=== PATIENT | female | born 1990 | race Caucasian/White ===

== ENCOUNTER 2020-05-05 08:00 | Outpatient (CLI) | payer OTHER | END 2020-05-05 23:59 | disposition home or self-care (01) | LOC: LAB.S 08:00 | PROVIDERS: ATTEND Physician Assistant Medical | DX: R30.0 Dysuria (principal) | CPT/HCPCS: 87077; 87086; 87181 ==

== ENCOUNTER 2020-06-26 19:06 | Emergency (ER) | payer OTHER ==
--- OUTSIDE RECORDS SUMMARY | 2020-06-26 19:09 | EXTERNAL MEDICAL SUMMARY RPT | Continuity of Care Document ---
:1990 Demographics Phone Unavailable Preferred Language Unknown Marital Status Unknown Scientologist Affiliation Unknown Race Unknown Ethnic Group Unknown Author Organization [facility] Address [address] [id number] Phone Care Team Providers Name Role Phone PA-C Unavailable Unavailable Valerie Unavailable Unavailable Medications date description facility [id number] LEVOTHYROXINE SODIUM [facility] [id number] TRAZODONE HCL [facility] [id number] LEVONORGESTREL [facility] [facility] [id number] AMPHETAMINE-DEXTROAMPHETAMINE [facility] [id number] NITROFURANTOIN MONOHYD MACRO [facility] [id number] GABAPENTIN [facility] [place] [facility] [id number] LURASIDONE HCL [facility] [place] [facility] [id number] LURASIDONE HCL [facility] [place] [facility] [id number] AMPHETAMINE-DEXTROAMPHETAMINE [facility] [id number] NITROFURANTOIN MONOHYD MACRO [facility] [id number] LEVONORGESTREL [facility] [place] [facility] [id number] GABAPENTIN [facility] [place] [facility] [id number] TRAZODONE HCL [facility] [place] [facility] [id number] LEVOTHYROXINE SODIUM [facility] [id number] LEVOTHYROXINE SODIUM All [id number] TRAZODONE HCL All [id number] LEVONORGESTREL All [id number] AMPHETAMINE-DEXTROAMPHETAMINE All [id number] NITROFURANTOIN MONOHYD MACRO All [id number] GABAPENTIN All [id number] LURASIDONE HCL All [id number] LURASIDONE HCL All [id number] AMPHETAMINE-DEXTROAMPHETAMINE All [id number] NITROFURANTOIN MONOHYD MACRO All [id number] LEVONORGESTREL All [id number] GABAPENTIN All [id number] TRAZODONE HCL All [id number] LEVOTHYROXINE SODIUM All Problems date description facility 20200505 Urine C&S Walk[facility]In [facility] 20200505 Tobacco use and exposure Walk-In [facility] 20200505 Recurrent cystitis Walk[facility] 20200505 Details of drug misuse behavior Walk-I n [facility] 20200505 Bipolar II disorder Walk[facility]In [facility] 20200505 Alcohol intake Walk[facility] 20200505 Tobacco smoking status NHIS All 20200505 Other bipolar disorders All [id number] Never smoker All [id number] Dysuria All 20200505 Cystitis, unspecified All 20200505 Cystitis, unspecified without All hematuria 20200505 Alcohol use All Procedures date description facility 20200505 POC HCG Walk-In [facility] 20200505 POC URINALYSIS DIP Walk[facility]In [facility] 20200505 POC HCG All 20200505 POC URINALYSIS DIP All Results test status date ordered by attending specimen sue e Urobilinogen_Presence_ unknown [id number] unknown unknown unknown in_Urine_by_Test_strip Specific_gravity_of_Ur unknown 53959105 unknown unknown unknown ine_by_Test_strip pH_of_Urine_by_Test_st unknown 45453878 unknown unknown unknown rip Nitrite_Presence_in_Ur unknown 39419163 unknown unknown unknown ine_by_Test_strip Leukocyte_esterase_Pre unknown 53636634 unknown unknown unknown sence_in_Urine_by_Test_ strip Ketones_Mass_volume_in unknown 80691793 unknown unknown unknown _Urine_by_Test_strip Glucose_Mass_volume_in unknown 72088746 unknown unknown unknown _Urine_by_Test_strip Color_of_Urine unknown 46302676 unknown unknown unknown Bilirubin.total_Presen unknown 20200505 unknown unknown unknown ce_in_Urine_by_Test_str ip Appearance_of_Urine unknown 79091082 unknown unknown unk nown urinalysis_routine unknown 76090398 unknown unknown unkn own appearance_urine unknown 73135571 unknown unknown unknow n leukocyte_esterase_uri unknown 75356415 unknown unknown unknown ne_by_dipstick urobilinogen_urine_sem unknown 63305769 unknown unknown unknown iquantitative_dipstick_ specific_gravity_urine unknown 97913128 unknown unknown unknown pH_urine_semiquantitat unknown 44640357 unknown unknown unknown susan nitrite_urine_semiquan unknown 78741804 unknown unknown unknown titative ketones_urine_by_test_ unknown 56064917 unknown unknown unknown strip bilirubin_urine unknown 98377892 unknown unknown unknown urine_color unknown 15324057 unknown unknown unknown human_chorionic_gonado unknown 44378121 unknown unknown unknown tropin_urine_qualitativ e_urine_pregnancy_test_ Choriogonadotropin_pre unknown 84621882 unknown unknown unknown gnancy_test_Presence_in _Urine Albumin_Presence_in_Ur unknown 86422482 unknown unknown unknown ine RBC_urine_dipstick unknown 20779973 unknown unknown unkn own Erythrocytes_area_in_U unknown 11550586 unknown unknown unknown rine_sediment_by_Micros copy_high_power_field glucose_urine_semiquan unknown 83342322 unknown unknown unknown titative protein_urine_semiquan unknown 32213472 unknown unknown unknown titative_dipstick_ Urine_HCG_QC_Result_CL unknown 24499195 unknown unknown unknown IA_Waived_ Urine_HCG_Exp_Date_CLI unknown 04724351 unknown unknown unknown A_Waived_ Urine_HCG_Lot_Number_C unknown 77124656 unknown unknown unknown LIA_Waived_ DIPSTICK_URINE_STRIP_L unknown 62239528 unknown unknown unknown OT_NUMBER Urobilinogen_Presence_ unknown 79476182 unknown unknown unknown in_Urine_by_Test_strip Specific_gravity_of_Ur unknown 85870501 unknown unknown unknown ine_by_Test_strip pH_of_Urine_by_Test_st unknown 68337235 unknown unknown unknown rip Nitrite_Presence_in_Ur unknown 63431750 unknown unknown unknown ine_by_Test_strip Leukocyte_esterase_Pre unknown 63580503 unknown unknown unknown sence_in_Urine_by_Test_ strip Ketones_Mass_volume_in unknown 47118255 unknown unknown unknown _Urine_by_Test_strip Glucose_Mass_volume_in unknown 49802601 unknown unknown unknown _Urine_by_Test_strip Color_of_Urine unknown 35612048 unknown unknown unknown Bilirubin.total_Presen unknown 46716741 unknown unknown unknown ce_in_Urine_by_Test_str ip Appearance_of_Urine unknown 02599223 unknown unknown unk nown urinalysis_routine unknown 91548983 unknown unknown unkn own appearance_urine unknown 71744523 unknown unknown unknow n leukocyte_esterase_uri unknown 48618404 unknown unknown unknown ne_by_dipstick urobilinogen_urine_sem unknown 61889455 unknown unknown unknown iquantitative_dipstick_ specific_gravity_urine unknown 21527043 unknown unknown unknown pH_urine_semiquantitat unknown 71302328 unknown unknown unknown susan nitrite_urine_semiquan unknown 37810519 unknown unknown unknown titative ketones_urine_by_test_ unknown 69990685 unknown unknown unknown strip bilirubin_urine unknown 35829111 unknown unknown unknown urine_color unknown 91679498 unknown unknown unknown human_chorionic_gonado unknown 51986515 unknown unknown unknown tropin_urine_qualitativ e_urine_pregnancy_test_ Choriogonadotropin_pre unknown 58124216 unknown unknown unknown gnancy_test_Presence_in _Urine Albumin_Presence_in_Ur unknown 04766932 unknown unknown unknown ine RBC_urine_dipstick unknown 01193113 unknown unknown unkn own Erythrocytes_area_in_U unknown 64467001 unknown unknown unknown rine_sediment_by_Micros copy_high_power_field glucose_urine_semiquan unknown 62978911 unknown unknown unknown titative protein_urine_semiquan unknown 62553401 unknown unknown unknown titative_dipstick_ Urine_HCG_QC_Result_CL unknown 84097229 unknown unknown unknown IA_Waived_ Urine_HCG_Exp_Date_CLI unknown 98602579 unknown unknown unknown A_Waived_ Urine_HCG_Lot_Number_C unknown 06101653 unknown unknown unknown LIA_Waived_ DIPSTICK_URINE_STRIP_L unknown 54989917 unknown unknown unknown OT_NUMBER facility observation status value reference units lab abnor mal line range code notes Walk-In Urobilinogen unknown negative unknown _5818 unkn own unknown Clinic _Presence_in_ -0 Primary Urine_by_Test Care & _strip [facility] Specific_gra unknown 1.010 unknown _5811 unknow n unknown Clinic vity_of_Urine -5 Primary _by_Test_stri Care & p [facility] pH_of_Urine_ unknown 5.5 unknown _5803 unknow n unknown Clinic by_Test_strip -2 Primary [facility] Nitrite_Pres unknown negative unknown _5802 unkn own unknown Clinic ence_in_Urine -4 Primary _by_Test_stri Care & p [facility] Leukocyte_es unknown 2+ unknown _5799 unknow n unknown Clinic terase_Presen -2 Primary ce_in_Urine_b Care & y_Test_strip [facility] Ketones_Mass unknown negative unknown _5797 unkn own unknown Clinic _volume_in_Ur -6 Primary ine_by_Test_s Care & trip [facility] Glucose_Mass unknown negative unknown _5792 unkn own unknown Clinic _volume_in_Ur -7 Primary ine_by_Test_s Care & trip [facility] Color_of_Uri unknown yellow unknown _5778 unknow n unknown Clinic ne -6 [facility] Bilirubin.to unknown negative unknown _5770 unkn own unknown Clinic tal_Presence_ -3 Primary in_Urine_by_T Care & est_strip [facility] Appearance_o unknown clear unknown _5767 unknow n unknown Clinic f_Urine -9 [facility] urinalysis_r unknown Clean unknown _47 unknow n unknown Clinic outine Catch [facility] appearance_u unknown clear unknown _328 unknow n unknown Clinic rine [facility] leukocyte_es unknown 2+ unknown _327 unknow n unknown Clinic terase_urine_ Primary by_dipstick [facility] urobilinogen unknown negative unknown _326 unkn own unknown Clinic _urine_semiqu Primary antitative_di Care & pstick_ [facility] specific_gra unknown 1.010 unknown _325 unknow n unknown Clinic vity_urine [facility] pH_urine_sem unknown 5.5 unknown _324 unknow n unknown Clinic iquantitative [facility] nitrite_urin unknown negative unknown _323 unkn own unknown Clinic e_semiquantit Primary ative [facility] ketones_urin unknown negative unknown _322 unkn own unknown Clinic e_by_test_str Primary ip [facility] bilirubin_ur unknown negative unknown _319 unkn own unknown Clinic ine [facility] urine_color unknown yellow unknown _2751 unknown unknown Clinic [facility] human_chorio unknown Negative unknown _2578 unkn own unknown Clinic nic_gonadotro Primary pin_urine_qua Care & litative_urin Ancillary e_pregnancy_t Services est_ [facility] Choriogonado unknown Negative unknown _2106 unkn own unknown Clinic tropin_pregna -3 Primary ncy_test_Pres Care & ence_in_Urine [facility] Albumin_Pres unknown negative unknown _1753 unkn own unknown Clinic ence_in_Urine -3 [facility] RBC_urine_di unknown 1+ unknown _1700 unknow n unknown Clinic pstick 005 [facility] Erythrocytes unknown 1+ unknown _1394 unknow n unknown Clinic _area_in_Urin 5-1 Primary e_sediment_by Care & _Microscopy_h Ancillary igh_power_fie Services ld [facility] glucose_urin unknown negative unknown _123 unkn own unknown Clinic e_semiquantit Primary ative Care & [facility] protein_urin unknown negative unknown _118 unkn own unknown Clinic e_semiquantit Primary ative_dipstic Care & k_ [facility] Urine_HCG_QC unknown Yes unknown _1149 unknow n unknown Clinic _Result_CLIA_ 42 Primary Waived_ Care & [facility] Urine_HCG_Ex unknown unknown _1149 unk nown unknown Clinic p_Date_CLIA_W 2 41 Primary aived_ [facility] Urine_HCG_Lo unknown [id number] unknown _1149 unk nown unknown Clinic t_Number_CLIA 9 40 Primary _Waived_ Care [facility] DIPSTICK_URI unknown 5067 unknown _1014 unknow n unknown Clinic NE_STRIP_LOT_ 00 Primary NUMBER [facility] All Urobilinogen unknown negative unknown _5818 unkno wn unknown _Presence_in_ -0 Urine_by_Test _strip All Specific_gra unknown 1.010 unknown _5811 unknown unknown vity_of_Urine -5 _by_Test_stri p All pH_of_Urine_ unknown 5.5 unknown _5803 unknown unknown by_Test_strip -2 All Nitrite_Pres unknown negative unknown _5802 unkno wn unknown ence_in_Urine -4 _by_Test_stri p All Leukocyte_es unknown 2+ unknown _5799 unknown unknown terase_Presen -2 ce_in_Urine_b y_Test_strip All Ketones_Mass unknown negative unknown _5797 unkno wn unknown _volume_in_Ur -6 ine_by_Test_s trip All Glucose_Mass unknown negative unknown _5792 unkno wn unknown _volume_in_Ur -7 ine_by_Test_s trip All Color_of_Uri unknown yellow unknown _5778 unknown unknown ne -6 All Bilirubin.to unknown negative unknown _5770 unkno wn unknown tal_Presence_ -3 in_Urine_by_T est_strip All Appearance_o unknown clear unknown _5767 unknown unknown f_Urine -9 All urinalysis_r unknown Clean unknown _47 unknown unknown outine Catch All appearance_u unknown clear unknown _328 unknown unknown rine All leukocyte_es unknown 2+ unknown _327 unknown unknown terase_urine_ by_dipstick All urobilinogen unknown negative unknown _326 unkno wn unknown _urine_semiqu antitative_di pstick_ All specific_gra unknown 1.010 unknown _325 unknown unknown vity_urine All pH_urine_sem unknown 5.5 unknown _324 unknown unknown iquantitative All nitrite_urin unknown negative unknown _323 unkno wn unknown e_semiquantit ative All ketones_urin unknown negative unknown _322 unkno wn unknown e_by_test_str ip All bilirubin_ur unknown negative unknown _319 unkno wn unknown ine All urine_color unknown yellow unknown _2751 unknown unknown All human_chorio unknown Negative unknown _2578 unkno wn unknown nic_gonadotro pin_urine_qua litative_urin e_pregnancy_t est_ All Choriogonado unknown Negative unknown _2106 unkno wn unknown tropin_pregna -3 ncy_test_Pres ence_in_Urine All Albumin_Pres unknown negative unknown _1753 unkno wn unknown ence_in_Urine -3 All RBC_urine_di unknown 1+ unknown _1700 unknown unknown pstick 005 All Erythrocytes unknown 1+ unknown _1394 unknown unknown _area_in_Urin 5-1 e_sediment_by _Microscopy_h igh_power_fie ld All glucose_urin unknown negative unknown _123 unkno wn unknown e_semiquantit ative All protein_urin unknown negative unknown _118 unkno wn unknown e_semiquantit ative_dipstic k_ All Urine_HCG_QC unknown Yes unknown _1149 unknown unknown _Result_CLIA_ 42 Waived_ All Urine_HCG_Ex unknown unknown _1149 unkn own unknown p_Date_CLIA_W 2 41 aived_ All Urine_HCG_Lo unknown [id number] unknown _1149 unkn own unknown t_Number_CLIA 9 40 _Waived_ All DIPSTICK_URI unknown 5067 unknown _1014 unknown unknown NE_STRIP_LOT_ 00 NUMBER Vital Signs date measurement value source 20200505 weight_standard 66 lb 20200505 weight_metric 29.94 kg 20200505 temperature_standard 98.3 F 20200505 temperature_metric 36.83 C 20200505 respiration_rate 15 /min 20200505 height_standard 206 in 20200505 height_metric 523.24 cm 20200505 heart_rate 71 /min 20200505 BP_systolic 118 mm[Hg] 20200505 BP_diastolic 78 mm[Hg] 20200505 BMI 1.10 kg/m2 20200505 weight_standard 66 lb 20200505 weight_metric 29.94 kg 20200505 temperature_standard 98.3 F 20200505 temperature_metric 36.83 C 20200505 respiration_rate 15 /min 20200505 height_standard 206 in 20200505 height_metric 523.24 cm 20200505 heart_rate 71 /min 20200505 BP_systolic 118 mm[Hg] 20200505 BP_diastolic 78 mm[Hg] 20200505 BMI 1.10 kg/m2
--- OUTSIDE RECORDS SUMMARY | 2020-06-26 19:13 | EXTERNAL MEDICAL SUMMARY RPT | Continuity of Care Document ---
:1990 Demographics Phone Unavailable Preferred Language Unknown Marital Status Unknown Uatsdin Affiliation Unknown Race Unknown Ethnic Group Unknown Author Organization [place] Address [address] [phone] Phone Care Team Providers Name Role Phone PA-C Unavailable Unavailable Valerie Unavailable Unavailable Medications date description facility [id number] LEVOTHYROXINE SODIUM [facility] [id number] TRAZODONE HCL [facility] [id number] LEVONORGESTREL [facility] [id number] AMPHETAMINE-DEXTROAMPHETAMINE [facility] [id number] NITROFURANTOIN MONOHYD MACRO Walk[facility] [place] [id number] GABAPENTIN [facility] [id number] LURASIDONE HCL [facility] [id number] LURASIDONE HCL [facility] [place] [facility] [id number] AMPHETAMINE-DEXTROAMPHETAMINE [facility] [id number] NITROFURANTOIN MONOHYD MACRO [facility] [place] [id number] LEVONORGESTREL [facility] [place] [facility] [id number] GABAPENTIN [facility] [place] [facility] [id number] TRAZODONE HCL [facility] [place] [facility] [id number] LEVOTHYROXINE SODIUM [facility] [id number] LEVOTHYROXINE SODIUM All [id number] TRAZODONE HCL All [id number] LEVONORGESTREL All [id number] AMPHETAMINE-DEXTROAMPHETAMINE All [id number] NITROFURANTOIN MONOHYD MACRO All [id number] GABAPENTIN All [id number] LURASIDONE HCL All [id number] LURASIDONE HCL All [id number] AMPHETAMINE-DEXTROAMPHETAMINE All [id number] NITROFURANTOIN MONOHYD MACRO All [id number] LEVONORGESTREL All [id number] GABAPENTIN All [id number] TRAZODONE HCL All [id number] LEVOTHYROXINE SODIUM All Problems date description facility [id number] Urine C&S [facility] 20200505 Tobacco use and exposure Walk[facility] [id number] Recurrent cystitis [facility] [id number] Details of drug misuse behavior Walk-[facility] Services [facility] [id number] Bipolar II disorder Walk[facility] Services [facility] 20200505 Alcohol intake [facility] 20200505 Tobacco smoking status NHIS All 20200505 Other bipolar disorders All [id number] Never smoker All [id number] Dysuria All 20200505 Cystitis, unspecified All 20200505 Cystitis, unspecified without All hematuria 20200505 Alcohol use All Procedures date description facility 20200505 POC HCG Walk-In [facility] 20200505 POC URINALYSIS DIP Walk[facility] 20200505 POC HCG All 20200505 POC URINALYSIS DIP All Results test status date ordered by attending specimen sue e Urobilinogen_Presence_ unknown [id number] unknown unknown unknown in_Urine_by_Test_strip Specific_gravity_of_Ur unknown [id number] unknown unknown unknown ine_by_Test_strip pH_of_Urine_by_Test_st unknown [id number] unknown unknown unknown rip Nitrite_Presence_in_Ur unknown [id number] unknown unknown unknown ine_by_Test_strip Leukocyte_esterase_Pre unknown [id number] unknown unknown unknown sence_in_Urine_by_Test_ strip Ketones_Mass_volume_in unknown 21876142 unknown unknown unknown _Urine_by_Test_strip Glucose_Mass_volume_in unknown 80860257 unknown unknown unknown _Urine_by_Test_strip Color_of_Urine unknown 19196514 unknown unknown unknown Bilirubin.total_Presen unknown 20200505 unknown unknown unknown ce_in_Urine_by_Test_str ip Appearance_of_Urine unknown [id number] unknown unknown unk nown urinalysis_routine unknown [id number] unknown unknown unkn own appearance_urine unknown 88363801 unknown unknown unknow n leukocyte_esterase_uri unknown [id number] unknown unknown unknown ne_by_dipstick urobilinogen_urine_sem unknown 25190591 unknown unknown unknown iquantitative_dipstick_ specific_gravity_urine unknown [id number] unknown unknown unknown pH_urine_semiquantitat unknown 30843953 unknown unknown unknown susan nitrite_urine_semiquan unknown [id number] unknown unknown unknown titative ketones_urine_by_test_ unknown [id number] unknown unknown unknown strip bilirubin_urine unknown 76224355 unknown unknown unknown urine_color unknown 38368896 unknown unknown unknown human_chorionic_gonado unknown [id number] unknown unknown unknown tropin_urine_qualitativ e_urine_pregnancy_test_ Choriogonadotropin_pre unknown 51995742 unknown unknown unknown gnancy_test_Presence_in _Urine Albumin_Presence_in_Ur unknown 27853260 unknown unknown unknown ine RBC_urine_dipstick unknown 10874423 unknown unknown unkn own Erythrocytes_area_in_U unknown 14208481 unknown unknown unknown rine_sediment_by_Micros copy_high_power_field glucose_urine_semiquan unknown 12535882 unknown unknown unknown titative protein_urine_semiquan unknown 37663283 unknown unknown unknown titative_dipstick_ Urine_HCG_QC_Result_CL unknown [id number] unknown unknown unknown IA_Waived_ Urine_HCG_Exp_Date_CLI unknown [id number] unknown unknown unknown A_Waived_ Urine_HCG_Lot_Number_C unknown [id number] unknown unknown unknown LIA_Waived_ DIPSTICK_URINE_STRIP_L unknown [id number] unknown unknown unknown OT_NUMBER Urobilinogen_Presence_ unknown 50125195 unknown unknown unknown in_Urine_by_Test_strip Specific_gravity_of_Ur unknown 89328721 unknown unknown unknown ine_by_Test_strip pH_of_Urine_by_Test_st unknown 29320870 unknown unknown unknown rip Nitrite_Presence_in_Ur unknown 41345673 unknown unknown unknown ine_by_Test_strip Leukocyte_esterase_Pre unknown 81096885 unknown unknown unknown sence_in_Urine_by_Test_ strip Ketones_Mass_volume_in unknown 58269595 unknown unknown unknown _Urine_by_Test_strip Glucose_Mass_volume_in unknown 31374490 unknown unknown unknown _Urine_by_Test_strip Color_of_Urine unknown 95657507 unknown unknown unknown Bilirubin.total_Presen unknown 61725846 unknown unknown unknown ce_in_Urine_by_Test_str ip Appearance_of_Urine unknown 04888583 unknown unknown unk nown urinalysis_routine unknown 67369906 unknown unknown unkn own appearance_urine unknown 67994132 unknown unknown unknow n leukocyte_esterase_uri unknown [id number] unknown unknown unknown ne_by_dipstick urobilinogen_urine_sem unknown 39047763 unknown unknown unknown iquantitative_dipstick_ specific_gravity_urine unknown 14309422 unknown unknown unknown pH_urine_semiquantitat unknown 94308886 unknown unknown unknown susan nitrite_urine_semiquan unknown 07130638 unknown unknown unknown titative ketones_urine_by_test_ unknown 11985897 unknown unknown unknown strip bilirubin_urine unknown 37545555 unknown unknown unknown urine_color unknown 45295836 unknown unknown unknown human_chorionic_gonado unknown 60159975 unknown unknown unknown tropin_urine_qualitativ e_urine_pregnancy_test_ Choriogonadotropin_pre unknown 34656200 unknown unknown unknown gnancy_test_Presence_in _Urine Albumin_Presence_in_Ur unknown 62223830 unknown unknown unknown ine RBC_urine_dipstick unknown 38378048 unknown unknown unkn own Erythrocytes_area_in_U unknown 61263362 unknown unknown unknown rine_sediment_by_Micros copy_high_power_field glucose_urine_semiquan unknown 78625958 unknown unknown unknown titative protein_urine_semiquan unknown 74644311 unknown unknown unknown titative_dipstick_ Urine_HCG_QC_Result_CL unknown [id number] unknown unknown unknown IA_Waived_ Urine_HCG_Exp_Date_CLI unknown [id number] unknown unknown unknown A_Waived_ Urine_HCG_Lot_Number_C unknown 58307516 unknown unknown unknown LIA_Waived_ DIPSTICK_URINE_STRIP_L unknown [id number] unknown unknown unknown OT_NUMBER facility observation status [...] [facility] Urine_HCG_Lo unknown [id number] unknown _1149 unk nown unknown Clinic t_Number_CLIA [...] p_Date_CLIA_W 2 41 aived_ All Urine_HCG_Lo unknown [id number] unknown _1149 unkn own unknown t_Number_CLIA 9 [...]
[2020-06-26] MEDS ORDERED: PROCHLORPERAZINE 10 MG/2 ML VIAL IVP STA (19:35)
[2020-06-26] MEDS ORDERED: diphenhydrAMINE INJ 50 MG/ML VIAL IVP STA (19:35)
[2020-06-26] MEDS ORDERED: SODIUM CHLORIDE 0.9% 1,000 ML IV STA (19:35)
[2020-06-26 20:06] LABS: BILIRUBIN,URINE NEGATIVE (NEGATIVE); GLUCOSE, URINE (UA) NEGATIVE (NEGATIVE); KETONES,URINE (UA) NEGATIVE (NEGATIVE); LEUKOCYTE ESTERASE, URINE TRACE (NEGATIVE); NITRITE,URINE NEGATIVE (NEGATIVE); OCCULT BLOOD,URINE SMALL (NEGATIVE); PROTEIN,URINE NEGATIVE (NEGATIVE); UROBILINOGEN,URINE 0.2 (NORMAL) E.U./dL (NORMAL)
[2020-06-26 20:08] LABS: CLARITY,URINE CLEAR (CLEAR)
[2020-06-26 20:09] LABS: HCG UR QUAL NEGATIVE
--- NOTE | 2020-06-26 20:12 | ED Physician Documentation ---
History of Present Illness - Stated complaint Stated Complaint: FUENTES - Chief complaint Chief Complaint: Heent - Additonal information Additional information: 29-year-old female who has a longstanding history of migraine headaches presents to the emergency department with headache that is not arrested by her typical regimen at home. She reports daily headaches and does see a headache specialist. She was recently transitioned off of a triptan And started on rizotryptine. She also took Tylenol and aspirin without relief of the headache. She has severe noise and light sensitivity which is typical for her headaches. She has some nausea but no vomiting. Denies abdominal pain. No falls or trauma no fevers. Review of Systems Constitutional: denies: Fever, Chills Eyes: reports: Photophobia Ears: reports: Reviewed and negative Nose: reports: Reviewed and negative Throat: reports: Reviewed and negative Cardiac: reports: Reviewed and negative Respiratory: reports: Reviewed and negative GI: reports: Reviewed and negative : reports: Reviewed and negative Skin: reports: Reviewed and negative Musculoskeletal: reports: Reviewed and negative Neurologic: reports: Headache. 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 - Past Surgical History Past Surgical History: Yes Ortho: Other - Present Medications Home Medications: Ambulatory Orders Medication Instructions Recorded Confirmed Dextroamphetamine/Amphetamine 15 mg PO DAILY 06/26/20 06/26/20 [Adderall 15 mg Tablet] Gabapentin [Neurontin] 2,100 mg PO DAILY 06/26/20 06/26/20 Levothyroxine Sodium 25 mcg PO DAILY 06/26/20 06/26/20 [Levothyroxine] Trazodone HCl 150 mg PO DAILY 06/26/20 06/26/20 - Allergies Allergies/Adverse Reactions: Allergies Allergy/AdvReac Type Severity Reaction Status Date / Time No Known Drug Allergies Allergy Verified 06/26/20 19:23 - Social History Does the pt smoke?: No Smoking Status: Never smoker Does the pt drink ETOH?: Yes Does the pt have substance abuse?: No - Immunizations Immunizations are current?: Yes - POLST Patient has POLST: No PD ED PE EXPANDED - General General: Alert, In Pain, In distress - Neck Neck: Supple w/out meningeal sx. No: Adenopathy - Cardiac Cardiac: Regular Rate, Radial strong equal, Pedal strong equal, Cap refill < 2 sec. No: Murmur Present - Respiratory Respiratory: Clear to ausultation asha. No: Distress, Labored - Female Female : Normal external - Derm Derm: Normal color, Warm and dry. No: Rash - Extremities Extremities: Normal. No: Deformity, Tenderness - Neuro Neuro: Alert and Oriented X 3, CNII-XII intact, Normal gait, Normal finger nose, Normal speech - GCS Eye Opening: Spontaneous Motor: Obeys Commands Verbal: Oriented Total: 15 Results - Vitals Vitals: Vital Signs - 24 hr 06/26/20 06/26/20 19:18 19:25 Temperature 36.6 C 36.6 C Heart Rate 72 72 Respiratory 16 16 Rate Blood Pressure 143/84 H 143/84 H O2 Saturation 100 100 Oxygen O2 Source Room air - Labs Labs: Laboratory Tests 06/26/20 19:59 Urine Color YELLOW Urine Clarity CLEAR Urine pH 6.0 Ur Specific [place] 1.020 Urine Protein NEGATIVE Urine Glucose (UA) NEGATIVE Urine Ketones NEGATIVE Urine Occult Blood SMALL H Urine Nitrite NEGATIVE Urine Bilirubin NEGATIVE Urine Urobilinogen 0.2 (NORMAL) Ur Leukocyte Esterase TRACE H Urine RBC 0-5 Urine WBC 0-3 Ur Squamous Epith Cells MOD Squamous H Urine Bacteria Rare Ur Microscopic Review INDICATED Urine Culture Comments NOT INDICATED Urine HCG, Qual NEGATIVE PD MEDICAL DECISION MAKING - ED course Complexity details: reviewed results, re-evaluated patient, d/w patient ED course: 29-year-old female who has a history of extensive migraines and typically gets headaches every day comes to the emergency department with migraine that does not arrest given her normal medications. She has extreme light and noise sensitivity. Here in the emergency department she was given a liter of fluids, Compazine as well as Benadryl. About an hour and a half after the administration of these medications patient's headache had begun to leobardo and she reiterated that was now with pain level 4. I did offer her additional analgesia in the form of an opiate narcotic given the severity of her symptoms but she declined that. She was given 10 mg of Decadron to help to continue arresting the headache over the next 2 to 3 days. Urine is not consistent with infection patient is not . At this time she is stable for discharge home. Imaging was deferred given the chronicity of the symptoms and lack of focal findings. Patient will continue to follow-up with her headache specialist. Emergent and worrisome return precautions were discussed. Departure - Departure Disposition: Home, Self Care Clinical Impression: Migraine headache Qualifiers: Migraine type: other Status migrainosus presence: with status migrainosus Intractability: not intractable Qualified Code(s): G43.801 - Other migraine, not intractable, with status migrainosus Condition: Stable Record reviewed to determine appropriate education?: Yes Follow-Up: TAMMIE MCFARLAND MD [Primary Care Provider] - Comments: Angelia I am glad that we have been able to make your headache feel better here in the emergency department. You were given IV fluids, Compazine, Benadryl and then a dose of Decadron. This is a very typical headache cocktail in the emergency department. It is important that you continue to discuss your recurrent and daily headaches with your primary care doctor as well as your headache specialist. Please return to the emergency department if you develop fevers, have uncontrolled vomiting, feel that the headache is worsening despite your typical medications at home.
[2020-06-26 20:16] LABS: BACTERIA,URINE Rare /HPF (None Seen); RBC,URINE 0-5 /HPF (0-5); SQUAMOUS EPITHELIAL CELL,UR MOD Squamous (<= Few); WBC,URINE 0-3 /HPF (0-5)
[2020-06-26] MEDS ORDERED: DEXAMETHASONE 10 MG/ML VIAL PO STA (20:46)
[2020-06-26] MEDS ORDERED: CHERRY SYRUP 10 ML UDC PO ONE (20:46)
[2020-06-26 21:12] VITALS: BP 126/72
== END 2020-06-26 21:15 | disposition home or self-care (01) ==
LOC: ED 19:06
DX: G43.801 Other migraine, not intractable, with status migrainosus (principal)
CPT/HCPCS: 36415; 81001; 81025; 96361; 96374; 96375; 99283; 99284; A9270; J1200; 81003; 87086

== ENCOUNTER 2020-08-09 19:42 | Emergency (ER) | payer OTHER ==
[2020-08-09] MEDS ORDERED: HYDROmorphone 1 MG/ML CARPUJECT IM STA (20:45)
--- NOTE | 2020-08-09 20:53 | ED Physician Documentation ---
History of Present Illness - Stated complaint Stated Complaint: BACK PX - Chief complaint Chief Complaint: Back Pain - Additonal information Additional information: 29-year-old female presents emergency department for evaluation of right lateral back pain. She reports she woke up with it yesterday morning. She states that she has had this in the past when her boyfriend has been under too tight at night and accidentally grabbed the muscles. She says since he did it once it is been tenuous. Yesterday she says she suffered through the pain but today it was so bad she could not tolerate it. She took 400 and Motrin without relief. She denies fevers or saddle anesthesia. No bowel or bladder dysfunction. No dysuria urgency or frequency no history of injection drug use. In the exam room the patient holds her self in a frozen position on her left hip. She is unwilling to move forward or participate in the exam secondary to the pain. Review of Systems Constitutional: reports: Reviewed and negative Eyes: reports: Reviewed and negative Ears: reports: Reviewed and negative Nose: reports: Reviewed and negative Throat: reports: Reviewed and negative Cardiac: reports: Reviewed and negative Respiratory: reports: Reviewed and negative GI: reports: Reviewed and negative : reports: Reviewed and negative Skin: reports: Reviewed and negative Musculoskeletal: reports: Back pain PD PAST MEDICAL HISTORY - Past Medical History Cardiovascular: None Respiratory: None Neuro: Headaches, Migraines Endocrine/Autoimmune: HyPOthyroidism GI: None 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 : None HEENT: None Psych: Depression, Anxiety, Bipolar disorder, Panic attacks, ADD/ADHD Musculoskeletal: None Derm: None - Past Surgical History Past Surgical History: Yes Ortho: Other - Present Medications Home Medications: Ambulatory Orders Medication Instructions Recorded Confirmed Dextroamphetamine/Amphetamine 15 mg PO DAILY 06/26/20 06/26/20 [Adderall 15 mg Tablet] Gabapentin [Neurontin] 2,100 mg PO DAILY 06/26/20 06/26/20 Levothyroxine Sodium 25 mcg PO DAILY 06/26/20 06/26/20 [Levothyroxine] Trazodone HCl 150 mg PO DAILY 06/26/20 06/26/20 HYDROcod/ACETAM 5/325 [Sullivan 5/325] 1 tablet PO BID PRN #10 tablet 08/09/20 Ibuprofen [Motrin] 600 mg PO Q6H PRN #30 tab 08/09/20 methocarbamoL [Methocarbamol] 750 mg PO TID PRN #20 tablet 08/09/20 - Allergies Allergies/Adverse Reactions: Allergies Allergy/AdvReac Type Severity Reaction Status Date / Time No Known Drug Allergies Allergy Verified 08/09/20 19:56 - Social History Does the pt smoke?: No Smoking Status: Never smoker Does the pt drink ETOH?: Yes Does the pt have substance abuse?: No - Immunizations Immunizations are current?: Yes - POLST Patient has POLST: No PD ED PE EXPANDED - General General: Alert, In Pain - Cardiac Cardiac: Regular Rate, Radial strong equal, Pedal strong equal, Cap refill < 2 sec. No: Murmur Present - Respiratory Respiratory: Clear to ausultation asha. No: Distress, Labored - Abdomen Abdomen: Normal Bowel sounds - Back Back: Soft tissue tenderness (right lateral paraspinous thoracic tenderness t7- 9. No midline tenderness. Muscle has palpable spasm. Pt is unable to stand, or move. she remains in a fixed position secondary to pain ). No: Vertebral tenderness Results - Vitals Vitals: Vital Signs - 24 hr 08/09/20 08/09/20 19:52 22:35 Temperature 36.5 C Heart Rate 74 75 Respiratory 16 17 Rate Blood Pressure 136/72 H 134/75 H O2 Saturation 100 98 Oxygen O2 Source Room air - Labs Labs: Laboratory Tests 08/09/20 22:31 Urine Color YELLOW Urine Clarity CLEAR Urine pH 6.0 Ur Specific [place] 1.025 Urine Protein NEGATIVE Urine Glucose (UA) NEGATIVE Urine Ketones NEGATIVE Urine Occult Blood TRACE-INTA Urine Nitrite NEGATIVE Urine Bilirubin NEGATIVE Urine Urobilinogen 0.2 (NORMAL) Ur Leukocyte Esterase NEGATIVE Ur Microscopic Review NOT INDICATED Urine Culture Comments NOT INDICATED Urine HCG, Qual NEGATIVE PD MEDICAL DECISION MAKING - ED course Complexity details: reviewed results, re-evaluated patient, d/w patient ED course: 29 year old female presents to the ED for evaluation of right lateral thoracic back pain. non traumatic. Pt hold herself in a fixed position on the left side. She susie not stand Due to the pain. She is also allowing a very limited exam initially. there are no red flags on exam I started by giving her Toradol as well as Dilaudid but that did not improve the pain. I had then discussed with the patient the possibility of a trigger point injection but she rejected that idea. Ultimately with a lot of assistance and prodding from her fianc she was able to up and ambulate to the bathroom. She did provide a urine sample that showed no signs of infection or hematuria. My suspicion for a renal stone is low. In the end we did give her 5 mg of Valium. She was moving much better at the end of her ED stay though still quite tender. I will write a prescription for ibuprofen and methocarbamol as a muscle relaxer. A very limited amount of hydrocodone will be prescribed. We discussed that gentle stretching and warm compresses may also be effective. Emergent return precautions were discussed. I am prescribing a short course of short-acting opioid pain medication for this patient. I have reviewed the patients [employer] ARTIST and no concerning findings were noted. I have discussed that the opioids are for short term therapy only, and will not be refilled from the ED. Impression: Right thoracic back pain Muscle spasm Departure - Departure Disposition: Home, Self Care Condition: Stable Record reviewed to determine appropriate education?: Yes Instructions: ED Spasm Back No Trauma Prescriptions: methocarbamoL [Methocarbamol] 750 mg PO TID PRN #20 tablet PRN Reason: Spasms Ibuprofen [Motrin] 600 mg PO Q6H PRN #30 tab PRN Reason: Pain HYDROcod/ACETAM 5/325 [Sullivan 5/325] 1 tablet PO BID PRN #10 tablet PRN Reason: Pain Comments: [facility]. It appears as though the right side of your thoracic muscles are in spasm. Your urine showed no signs of infection. There was no blood in it. It is important that you attempt gentle stretching and regular movement as this will help alleviate the spasm. A warm compress on your back can also help. Please take the ibuprofen with food 3 times a day to help with back pain. I also prescribed a muscle relaxer. Use this with caution it may make you sleepy. For severe pain I have prescribed a very limited amount of hydrocodone. In the long-term your back pain will benefit from gentle stretching and referral to a physical therapist. If this becomes a recurrent or more worrisome problem your primary provider may need to order an MRI of your back but that does not need to be completed today. I am prescribing a short course of narcotic pain medication for you. These are potentially dangerous and addictive medications that should be used carefully. These medications may constipate you. Take an dwev-uub-nvrtljd stool softener (docusate) twice daily with plenty of water while taking these medications. If you go 24 hours without a bowel movement, take [id number]-zzanjku miralax, per package instructions. Do not drink or drive while taking these medications. If you received narcotic or sedating medications while in the emergency department, do not drive for 24 hours. Store this medication in a safe, secure place and out of reach of children. It is a violation of federal law to give or sell this medication to another person or to use in a manner other than prescribed. The ED will not refill narcotic prescriptions, including prescriptions lost or stolen. To dispose of unwanted medications: 1. [facility] at [address] in [place] has a medication drop box. They accept prescription medications (in pill form) Tuesday through Tuesday 9:00 a.m. to 5:00 p.m. 2. The [facility] [employer] accepts prescription medications (in pill form only) for disposal year round. Call for more information. 3. Contact the [facility] for the next [facility] sponsored prescription drug collection event. , [phone], or [phone]; Note that many narcotic pain relievers also contain Tylenol/acetaminophen. Please ensure that your total dose of acetaminophen from all sources does not exceed 3 g (3000 mg) per day.
[2020-08-09] MEDS ORDERED: diazePAM INJ 5 MG/ML SYRINGE IM STA ×2 (21:16→22:09)
[2020-08-09] MEDS ORDERED: KETOROLAC 60 MG/2 ML VIAL IM STA (21:16)
[2020-08-09] MEDS ORDERED: ONDANSETRON 4 MG/2 ML VIAL IVP STA (21:49)
[2020-08-09] MEDS ORDERED: SODIUM CHLORIDE 0.9% 1,000 ML IV STA (21:49)
[2020-08-09] MEDS ORDERED: HYDROmorphone 1 MG/ML CARPUJECT IVP STA (21:53)
[2020-08-09 22:36] VITALS: BP 134/75
[2020-08-09 22:37] LABS: BILIRUBIN,URINE NEGATIVE (NEGATIVE); CLARITY,URINE CLEAR (CLEAR); GLUCOSE, URINE (UA) NEGATIVE (NEGATIVE); KETONES,URINE (UA) NEGATIVE (NEGATIVE); LEUKOCYTE ESTERASE, URINE NEGATIVE (NEGATIVE); NITRITE,URINE NEGATIVE (NEGATIVE); OCCULT BLOOD,URINE TRACE-INTA (NEGATIVE); PROTEIN,URINE NEGATIVE (NEGATIVE); UROBILINOGEN,URINE 0.2 (NORMAL) E.U./dL (NORMAL)
[2020-08-09 22:39] LABS: HCG UR QUAL NEGATIVE
[2020-08-09] MEDS ORDERED: ONDANSETRON ODT 4 MG TABLET TL STA (22:49)
== END 2020-08-09 23:10 | disposition home or self-care (01) ==
LOC: ED 19:42
DX: M54.6 Pain in thoracic spine (principal); M62.830 Muscle spasm of back
CPT/HCPCS: 81003; 81025; 96372; 99283; 99284; J1170; Q0162; 80053; 81001; 83690; 85025; 87086

== ENCOUNTER 2021-03-09 13:03 | Emergency (ER) | payer OTHER ==
[2021-03-09 13:29] LABS: BASOPHILS % (AUTO) 0.7 %; EOSINOPHILS # (AUTO) 0.2 10^3/uL (0.0-0.7); EOSINOPHILS % (AUTO) 2.9 %; HCT - HEMATOCRIT 38.5 % (37.0-47.0); HGB - HEMOGLOBIN 13.4 g/dL (12.0-16.0); LYMPHOCYTES # (AUTO) 2.4 10^3/uL (1.5-3.5); LYMPHOCYTES % (AUTO) 40.5 %; MEAN CORPUSCULAR HEMOGLOBIN 31.8 pg (27.0-31.0); MEAN CORPUSCULAR HGB CONC 34.8 g/dL (32.0-36.0); MEAN CORPUSCULAR VOLUME 91.2 fL (81.0-99.0); MEAN PLATELET VOLUME 9.6 fL (7.9-10.8); MONOCYTES # (AUTO) 0.4 10^3/uL (0.0-1.0); MONOCYTES % (AUTO) 6.2 %; NEUTROPHILS % (AUTO) 49.5 %; PLT - PLATELET COUNT 267 10^3/uL (130-450); RED BLOOD COUNT 4.22 10^6/uL (4.20-5.40); RED CELL DISTRIBUTION WIDTH 11.9 % (12.0-15.0)
[2021-03-09 13:52] LABS: ALBUMIN 4.5 g/dL (3.2-5.5); ALBUMIN/GLOBULIN RATIO 1.6 (1.0-2.2); BILIRUBIN,TOTAL 0.7 mg/dL (0.2-1.0); CALCIUM 9.2 mg/dL (8.5-10.3); CREATININE 1.1 mg/dL (0.4-1.0); POTASSIUM 3.8 mmol/L (3.5-5.0); TOTAL PROTEIN 7.4 g/dL (6.7-8.2)
[2021-03-09 14:40] LABS: BILIRUBIN,URINE NEGATIVE (NEGATIVE); GLUCOSE, URINE (UA) NEGATIVE (NEGATIVE); KETONES,URINE (UA) NEGATIVE (NEGATIVE); LEUKOCYTE ESTERASE, URINE NEGATIVE (NEGATIVE); NITRITE,URINE NEGATIVE (NEGATIVE); OCCULT BLOOD,URINE TRACE-LYSE (NEGATIVE); PH,URINE 5.5 PH (5.0-7.5); PROTEIN,URINE NEGATIVE (NEGATIVE); UROBILINOGEN,URINE 0.2 (NORMAL) E.U./dL (NORMAL)
[2021-03-09 14:42] LABS: CLARITY,URINE CLEAR (CLEAR); HCG UR QUAL NEGATIVE
--- NOTE | 2021-03-09 15:24 | ED Physician Documentation ---
History of Present Illness - Stated complaint Stated Complaint: ABD CRAMPING - Chief complaint Chief Complaint: Abd Pain - History obtained from History obtained from: Patient - Additonal information Additional information: The patient comes to the emergency department for chief complaint of ongoing diarrhea for the last 2 months. She states that it has been watery and associated with nausea which sometimes results in vomiting and sometimes does not. The diarrhea has a yellow appearance and has not been bloody or black. The patient states that did not really start with a specific illness but that she just developed diarrhea never seem to go away. Patient denies any fevers or chills. She does not have any chronic conditions such as irritable bowel syndrome or inflammatory bowel disease of any kind or any autoimmune disorders. Patient is not known to have any food sensitivities. She states that nothing really seems to make the symptoms better or worse. She states she gets a cramp in her left upper quadrant and that her main concern is that she is tired of being nauseated. She states her boyfriend made her come in here because he was concerned about appendicitis. Patient denies any right-sided abdominal pain, either upper or lower. No other complaints at this time. Review of Systems Ten Systems: 10 systems reviewed and negative Constitutional: reports: Reviewed and negative Eyes: reports: Reviewed and negative Ears: reports: Reviewed and negative Nose: reports: Reviewed and negative Throat: reports: Reviewed and negative Cardiac: reports: Reviewed and negative Respiratory: reports: Reviewed and negative GI: reports: Abdominal Pain, Nausea, Diarrhea : reports: Reviewed and negative Skin: reports: Reviewed and negative Musculoskeletal: reports: Reviewed and negative Neurologic: reports: Reviewed and negative Psychiatric: reports: Reviewed and negative Endocrine: reports: Reviewed and negative Immunocompromised: reports: Reviewed and negative PD PAST MEDICAL HISTORY - Past Medical History Cardiovascular: None Respiratory: None Neuro: Headaches, Migraines Endocrine/Autoimmune: HyPOthyroidism GI: None 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 : None HEENT: None Psych: Depression, Anxiety, Bipolar disorder, Panic attacks, ADD/ADHD Musculoskeletal: None Derm: None - Past Surgical History Past Surgical History: Yes Ortho: Other - Present Medications Home Medications: Ambulatory Orders Medication Instructions Recorded Confirmed Dextroamphetamine/Amphetamine 15 mg PO DAILY 06/26/20 06/26/20 [Adderall 15 mg Tablet] Gabapentin [Neurontin] 2,100 mg PO DAILY 06/26/20 06/26/20 Levothyroxine Sodium 25 mcg PO DAILY 06/26/20 06/26/20 [Levothyroxine] Trazodone HCl 150 mg PO DAILY 06/26/20 06/26/20 HYDROcod/ACETAM 5/325 [Adrian 5/325] 1 tablet PO BID PRN #10 tablet 08/09/20 Ibuprofen [Motrin] 600 mg PO Q6H PRN #30 tab 08/09/20 methocarbamoL [Methocarbamol] 750 mg PO TID PRN #20 tablet 08/09/20 Ondansetron Odt [Zofran] 4 mg TL Q6H PRN #10 tablet 03/09/21 - Allergies Allergies/Adverse Reactions: Allergies Allergy/AdvReac Type Severity Reaction Status Date / Time No Known Drug Allergies Allergy Verified 03/09/21 13:09 - Social History Does the pt smoke?: No Smoking Status: Never smoker Does the pt drink ETOH?: Yes Does the pt have substance abuse?: No - Immunizations Immunizations are current?: Yes - POLST Patient has POLST: No PD ED PE NORMAL - Vitals Vital signs reviewed: Yes - General General: Alert and oriented X 3, No acute distress, Well developed/nourished - HEENT HEENT: Atraumatic, PERRL, EOMI, Moist mucous membranes - Neck Neck: Supple, no meningeal sign - Cardiac Cardiac: RRR, No murmur - Respiratory Respiratory: No respiratory distress, Clear bilaterally - Abdomen Abdomen: Normal bowel sounds, Soft, Non tender, Non distended - Back Back: No CVA TTP - Derm Derm: Normal color, Warm and dry, No rash - Extremities Extremities: No deformity, No edema, No calf tenderness / cord - Neuro Neuro: Alert and oriented X 3, toaster operator 2-12 intact, Normal speech - Psych Psych: Normal mood, Normal affect Results - Vitals Vitals: Oxygen O2 Source Room air - Labs Labs: Laboratory Tests 03/09/21 03/09/21 03/09/21 13:19 13:23 13:23 WBC 6.0 RBC 4.22 Hgb 13.4 Hct 38.5 MCV 91.2 MCH 31.8 H MCHC 34.8 RDW 11.9 L Plt Count 267 MPV 9.6 Neut # (Auto) 3.0 Lymph # (Auto) 2.4 [place] # (Auto) 0.4 Eos # (Auto) 0.2 Baso # (Auto) 0.0 Absolute Nucleated RBC 0.00 Nucleated RBC % 0.0 Sodium 138 Potassium 3.8 Chloride 102 Carbon Dioxide 29 Anion Gap 7.0 BUN 9 Creatinine 1.1 H Estimated GFR (MDRD) 59 L Glucose 111 H Calcium 9.2 Total Bilirubin 0.7 AST 17 ALT 14 Alkaline Phosphatase 47 Total Protein 7.4 Albumin 4.5 Globulin 2.9 Albumin/Globulin Ratio 1.6 Lipase 30 Urine Color YELLOW Urine Clarity CLEAR Urine pH 5.5 Ur Specific [place] >=1.030 H Urine Protein NEGATIVE Urine Glucose (UA) NEGATIVE Urine Ketones NEGATIVE Urine Occult Blood TRACE-LYSE Urine Nitrite NEGATIVE Urine Bilirubin NEGATIVE Urine Urobilinogen 0.2 (NORMAL) Ur Leukocyte Esterase NEGATIVE Ur Microscopic Review NOT INDICATED Urine Culture Comments NOT INDICATED Urine HCG, Qual NEGATIVE PD MEDICAL DECISION MAKING - ED course Complexity details: reviewed results, re-evaluated patient, considered differential, d/w patient ED course: Patient was treated symptomatically with Zofran, and I ordered a stool sample. The patient struggled to have a bowel movement at all and then finally produced a small amount of very normal looking stool. This was sent to the lab and is pen ding at this time. We discussed symptomatic management at home and the usual indications for return. Departure - Departure Disposition: 01 Home, Self Care Clinical Impression: Diarrhea Qualifiers: Diarrhea type: unspecified type Qualified Code(s): R19.7 - Diarrhea, unspecified Condition: Stable Instructions: ED Diet Vomiting Diarrhea Prescriptions: Ondansetron Odt [Zofran] 4 mg TL Q6H PRN #10 tablet PRN Reason: Nausea / Vomiting Comments: Your stool is solid today. The sample you have Given has been sent to the lab for evaluation, that will be more difficult to evaluate if it is solid, rather than diarrhea. There is no evidence of an emergent condition at this time. Your laboratory studies look okay. It is important that you follow-up with your primary care physician to discuss whether you should have a colonoscopy done to evaluate your diarrhea further. Please call first thing tomorrow to make this appointment. You may pepper picker the nausea medication at the pharmacy of your choice. Discharge Date/Time: 03/09/21 16:17
[2021-03-09] MEDS: ONDANSETRON ODT 4 MG TABLET TL STA (15:29)
[2021-03-09 15:40] VITALS: BP 116/61
== END 2021-03-09 16:17 | disposition home or self-care (01) ==
LOC: ED 13:03
DX: R19.7 Diarrhea, unspecified (principal)
CPT/HCPCS: 36415; 80053; 81003; 81025; 83690; 85025; 99282; 99283; Q0162; 81001; 87045; 87046; 87086; 87177; 87209; 87329; 87338; 87493; 87798

== ENCOUNTER 2021-04-01 22:56 | Emergency (ER) | payer OTHER ==
[2021-04-01 23:31] LABS: MUDS CUTOFF CONCENTRATIONS CUTOFF CONC BELOW:
[2021-04-01 23:36] LABS: HCG UR QUAL NEGATIVE
[2021-04-01 23:43] LABS: AMPHETAMINE SCREEN,URINE POSITIVE (NEGATIVE); BARBITURATE SCREEN,UR NEGATIVE (NEGATIVE); BENZODIAZEPINES SCREEN, URINE NEGATIVE (NEGATIVE); COCAINE SCREEN URINE NEGATIVE (NEGATIVE); METHADONE SCREEN, URINE NEGATIVE (NEGATIVE); METHAMPHETAMINES SCREEN, URINE NEGATIVE (NEGATIVE); OPIATE SCREEN, URINE NEGATIVE (NEGATIVE); OXYCODONE SCREEN, URINE NEGATIVE (NEGATIVE); PROPOXYPHENE SCREEN, URINE NEGATIVE (NEGATIVE); THC CANNABINOID SCREEN, URINE POSITIVE (NEGATIVE); TRICYCLIC ANTIDEPRESSANT,URINE NEGATIVE (NEGATIVE)
[2021-04-01 23:53] LABS: BILIRUBIN,URINE NEGATIVE (NEGATIVE); GLUCOSE, URINE (UA) NEGATIVE (NEGATIVE); KETONES,URINE (UA) NEGATIVE (NEGATIVE); LEUKOCYTE ESTERASE, URINE NEGATIVE (NEGATIVE); NITRITE,URINE NEGATIVE (NEGATIVE); OCCULT BLOOD,URINE TRACE-INTA (NEGATIVE); PH,URINE 6.5 PH (5.0-7.5); PROTEIN,URINE NEGATIVE (NEGATIVE); UROBILINOGEN,URINE 1 (NORMAL) E.U./dL (NORMAL)
[2021-04-01 23:53] LABS: BASOPHILS % (AUTO) 0.6 %; EOSINOPHILS # (AUTO) 0.2 10^3/uL (0.0-0.7); EOSINOPHILS % (AUTO) 2.7 %; HCT - HEMATOCRIT 39.7 % (37.0-47.0); HGB - HEMOGLOBIN 13.9 g/dL (12.0-16.0); LYMPHOCYTES # (AUTO) 2.3 10^3/uL (1.5-3.5); LYMPHOCYTES % (AUTO) 34.5 %; MEAN CORPUSCULAR HEMOGLOBIN 31.4 pg (27.0-31.0); MEAN CORPUSCULAR VOLUME 89.8 fL (81.0-99.0); MEAN PLATELET VOLUME 10.5 fL (7.9-10.8); MONOCYTES # (AUTO) 0.6 10^3/uL (0.0-1.0); MONOCYTES % (AUTO) 8.1 %; NEUTROPHILS # (AUTO) 3.6 10^3/uL (1.5-6.6); NEUTROPHILS % (AUTO) 53.8 %; PLT - PLATELET COUNT 234 10^3/uL (130-450); RED BLOOD COUNT 4.42 10^6/uL (4.20-5.40); RED CELL DISTRIBUTION WIDTH 11.9 % (12.0-15.0); WHITE BLOOD COUNT 6.8 x10^3/uL (4.8-10.8)
[2021-04-01 23:57] LABS: CLARITY,URINE CLEAR (CLEAR)
[2021-04-02 00:07] LABS: ACETAMINOPHEN < 10 ug/mL (10-30); ALBUMIN 4.4 g/dL (3.2-5.5); ALBUMIN/GLOBULIN RATIO 1.6 (1.0-2.2); ALKALINE PHOSPHATASE 44 IU/L (42-121); ALT ALANINE AMINOTRANSFERASE 16 IU/L (10-60); AST ASPARTATE AMINOTRANSFERASE 16 IU/L (10-42); BILIRUBIN,TOTAL 1.1 mg/dL (0.2-1.0); BUN - BLOOD UREA NITROGEN 18 mg/dL (6-20); ETOH - ETHANOL < 5.0 mg/dL; GFR - MDRD 66 (>89); LIPASE 25 U/L (22-51); SALICYLATE < 6.0 mg/dL; TOTAL PROTEIN 7.2 g/dL (6.7-8.2)
[2021-04-02 00:12] LABS: CALCIUM 9.6 mg/dL (8.5-10.3); CARBON DIOXIDE - CO2 23 mmol/L (21-32); CHLORIDE 104 mmol/L (101-111); GLUCOSE 98 mg/dL (70-100); POTASSIUM 3.6 mmol/L (3.5-5.0); SODIUM 137 mmol/L (135-145)
--- NOTE | 2021-04-02 01:55 | ED Physician Documentation ---
PD HPI MHE - Stated complaint Stated Complaint: SI/MHE - Chief complaint Chief Complaint: MHE - History obtained from History obtained from: Patient - Additional information Additional information: 22-year-old woman with history of cyclic mood disorder and depression presents with suicidal ideations jose roberto. Patient placed a gun in her mouth jose roberto after finding out that her boyfriend's deployment had been extended from 6 months to 10 months. She endorses social isolation and loneliness, feels desperate at the thought of another 4 months living alone. She has prior history of suicidality (plan to jump off a building in the past) and multiple prior inpatient psych hospitalizations, earliest at age 12. currently takes gabapentin 900, adderall XR 15, trazodone 75 to 150mg, levothyroxine, and is tapering up on lamictal (previously taking 100mg, and took 200 mg for the first time today per psych recs). denies HI/AVH. Currently stating she no longer feels suicidal, is now calm and would like to go home. She will plan to make arrangements to get a roommate. Collateral info from Demond (close friend) [phone] - He is a carburetor specialist and has been a suicide tobacco prevention health educator for 9 years. Has known her for 4- 5 months. He states she called him jose roberto saying she was having a mental health crisis. His concern is the next 24-48 hours. she did ask him to secure the weapons in her home (3 guns, now in a locked office) and spoke on the phone with the 's crisis line in his presence. He states he has some concerns about her being committed. When he arrived she definitely was having an acute mental health crisis but has calmed down considerably since that time. Demond states she likely wouldn't be able to talk with her SO Saran if inpatient. He is deployed in [place] and there is a significant time difference as well to consider. Demond says he can take the next 2 days off of work to spend time with and care for her and have her stay in his home. Per Demond, the patient has a daily telehealth appointment with a mental health counselor at 1600 and does well with these calls. Psychiatrist is Joan Novoa ([facility]). Review of Systems Ten Systems: 10 systems reviewed and negative Constitutional: denies: Fever, Chills Cardiac: denies: Chest pain / pressure, Palpitations Respiratory: denies: Dyspnea Psychiatric: reports: Depressed, Suicidal, Insomnia. 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 : None HEENT: None Psych: Depression, Anxiety, Bipolar disorder, Panic attacks, ADD/ADHD Musculoskeletal: None Derm: None - Past Surgical History Past Surgical History: Yes Ortho: Other - Present Medications Home Medications: Ambulatory Orders Medication Instructions Recorded Confirmed Dextroamphetamine/Amphetamine 15 mg PO DAILY 06/26/20 04/01/21 [Adderall 15 mg Tablet] Gabapentin [Neurontin] 2,100 mg PO DAILY 06/26/20 04/01/21 Levothyroxine Sodium 25 mcg PO DAILY 06/26/20 04/01/21 [Levothyroxine] Trazodone HCl 150 mg PO DAILY 06/26/20 04/01/21 - Allergies Allergies/Adverse Reactions: Allergies Allergy/AdvReac Type Severity Reaction Status Date / Time No Known Drug Allergies Allergy Verified 04/01/21 23:26 - Social History Does the pt smoke?: No Smoking Status: Never smoker Does the pt drink ETOH?: Yes Does the pt have substance abuse?: No - Immunizations Immunizations are current?: Yes - POLST Patient has POLST: No PD ED PE NORMAL - Vitals Vital signs reviewed: Yes - General General: Alert and oriented X 3, Well developed/nourished - HEENT HEENT: Atraumatic, PERRL, EOMI - Neck Neck: Supple, no meningeal sign - Cardiac Cardiac: RRR - Respiratory Respiratory: No respiratory distress, Clear bilaterally - Abdomen Abdomen: Non tender, Non distended - Derm Derm: Normal color, Warm and dry - Extremities Extremities: No deformity - Neuro Neuro: No motor deficit, No sensory deficit - Psych Psych: Other (depressed mood and affect) Results - Vitals Vitals: Vital Signs - 24 hr 04/02/21 04/02/21 07:49 11:29 Temperature 36.9 C 37.1 C Heart Rate 73 73 Respiratory 12 16 Rate Blood Pressure 114/66 105/74 O2 Saturation 100 100 Oxygen O2 Source Room air - Labs Labs: Laboratory Tests 0204/01/21 04/01/21 23:15 23:15 23:15 WBC RBC Hgb Hct MCV MCH MCHC RDW Plt Count MPV Neut # (Auto) Lymph # (Auto) [place] # (Auto) Eos # (Auto) Baso # (Auto) Absolute Nucleated RBC Nucleated RBC % Sodium Potassium Chloride Carbon Dioxide Anion Gap BUN Creatinine Estimated GFR (MDRD) Glucose Calcium Total Bilirubin AST ALT Alkaline Phosphatase Total Protein Albumin Globulin Albumin/Globulin Ratio Lipase TSH Urine Color YELLOW Urine Clarity CLEAR Urine pH 6.5 Ur Specific [place] >=1.030 H Urine Protein NEGATIVE Urine Glucose (UA) NEGATIVE Urine Ketones NEGATIVE Urine Occult Blood TRACE-INTA Urine Nitrite NEGATIVE Urine Bilirubin NEGATIVE Urine Urobilinogen 1 (NORMAL) Ur Leukocyte Esterase NEGATIVE Ur Microscopic Review NOT INDICATED Urine Culture Comments NOT INDICATED Urine HCG, Qual NEGATIVE Salicylates Urine Opiates Screen NEGATIVE Ur Oxycodone Screen NEGATIVE Urine Methadone Screen NEGATIVE Ur Propoxyphene Screen NEGATIVE Acetaminophen Ur Barbiturates Screen NEGATIVE Ur Tricyclics Screen NEGATIVE Ur Phencyclidine Scrn NEGATIVE Ur Amphetamine Screen POSITIVE H U Methamphetamines Scrn NEGATIVE U Benzodiazepines Scrn NEGATIVE Urine Cocaine Screen NEGATIVE U Cannabinoids Screen POSITIVE H Ethyl Alcohol SARS-CoV-2 (PCR) 04/01/21 04/01/21 04/01/21 23:38 23:45 23:45 WBC 6.8 RBC 4.42 Hgb 13.9 Hct 39.7 MCV 89.8 MCH 31.4 H MCHC 35.0 RDW 11.9 L Plt Count 234 MPV 10.5 Neut # (Auto) 3.6 Lymph # (Auto) 2.3 [place] # (Auto) 0.6 Eos # (Auto) 0.2 Baso # (Auto) 0.0 Absolute Nucleated RBC 0.00 Nucleated RBC % 0.0 Sodium 137 Potassium 3.6 Chloride 104 Carbon Dioxide 23 Anion Gap 10.0 BUN 18 Creatinine 1.0 Estimated GFR (MDRD) 66 L Glucose 98 Calcium 9.6 Total Bilirubin 1.1 H AST 16 ALT 16 Alkaline Phosphatase 44 Total Protein 7.2 Albumin 4.4 Globulin 2.8 Albumin/Globulin Ratio 1.6 Lipase 25 TSH Urine Color Urine Clarity Urine pH Ur Specific [place] Urine Protein Urine Glucose (UA) Urine Ketones Urine Occult Blood Urine Nitrite Urine Bilirubin Urine Urobilinogen Ur Leukocyte Esterase Ur Microscopic Review Urine Culture Comments Urine HCG, Qual Salicylates < 6.0 Urine Opiates Screen Ur Oxycodone Screen Urine Methadone Screen Ur Propoxyphene Screen Acetaminophen < 10 L Ur Barbiturates Screen Ur Tricyclics Screen Ur Phencyclidine Scrn Ur Amphetamine Screen U Methamphetamines Scrn U Benzodiazepines Scrn Urine Cocaine Screen U Cannabinoids Screen Ethyl Alcohol < 5.0 SARS-CoV-2 (PCR) NOT DETECTED 04/01/21 23:45 WBC RBC Hgb Hct MCV MCH MCHC RDW Plt Count MPV Neut # (Auto) Lymph # (Auto) [place] # (Auto) Eos # (Auto) Baso # (Auto) Absolute Nucleated RBC Nucleated RBC % Sodium Potassium Chloride Carbon Dioxide Anion Gap BUN Creatinine Estimated GFR (MDRD) Glucose Calcium Total Bilirubin AST ALT Alkaline Phosphatase Total Protein Albumin Globulin Albumin/Globulin Ratio Lipase TSH 2.16 Urine Color Urine Clarity Urine pH Ur Specific [place] Urine Protein Urine Glucose (UA) Urine Ketones Urine Occult Blood Urine Nitrite Urine Bilirubin Urine Urobilinogen Ur Leukocyte Esterase Ur Microscopic Review Urine Culture Comments Urine HCG, Qual Salicylates Urine Opiates Screen Ur Oxycodone Screen Urine Methadone Screen Ur Propoxyphene Screen Acetaminophen Ur Barbiturates Screen Ur Tricyclics Screen Ur Phencyclidine Scrn Ur Amphetamine Screen U Methamphetamines Scrn U Benzodiazepines Scrn Urine Cocaine Screen U Cannabinoids Screen Ethyl Alcohol SARS-CoV-2 (PCR) PD MEDICAL DECISION MAKING - ED course ED course: d/w NIEVES Pinto in regards to Angelia's outpatient support structure and provided him with Demond's information. Patient became agitated and tearful on the ipad telehealth consult with Blair and repeatedly said, "I can't lose my guns. I need them to protect me against my ex boyfriend". d/w NIEVES Pinto. He tried to call Demond but he didn't answer the phone. Blair states that patient decided to go the voluntary route therefore he will sign off. We will speak with MOSES and have SW see her in AM. Patient disclosed to our hide house supervisor Yessica that she is in a polygamous relationship with Demond and her significant other Saran who is on deployment. endorsed to Dr. Martinez at shift change awaiting TIMO. Departure - Departure Disposition: 01 Home, Self Care Clinical Impression: Stress response, Suicidal ideation Instructions: ED Stress React Comments: Continue with your current medications, counseling, psychiatry. Call the crisis line if you need for stress anxiety or suicidal ideation. Be with your friend today to have someone to help you. Return if needed. Discharge Date/Time: 04/02/21 11:37
[2021-04-02 11:30] VITALS: BP 105/74
--- NOTE | 2021-04-07 06:25 | ED Physician Documentation ---
ED Addendum - Addendum Addendum: 04/07/21 06:23The patient was seen by social work who talked with the patient and her friend and . Consensus feeling was that the patient was not feeling suicidal at this point and her friend Demond would be with her and help provide guidance and support. She has a counseling session later today already scheduled. The feeling was that patient was safe for discharge. Disposition: The patient is discharged stable condition from the ER to home Diagnoses: 1. Suicidal ideation and anxiety
== END 2021-04-02 11:37 | disposition home or self-care (01) ==
LOC: ED 22:56
DX: R45.851 Suicidal ideations (principal); F41.9 Anxiety disorder, unspecified; Z20.822 Contact with and (suspected) exposure to COVID-19
CPT/HCPCS: 36415; 80053; 80306; 80307; 80320; 80329; 81001; 81003; 81025; 83690; 84443; 85025; 87086; 99283

== ENCOUNTER 2021-07-08 14:47 | Emergency (ER) | payer OTHER ==
[2021-07-08 15:06] VITALS: BP 121/68
--- OUTSIDE RECORDS SUMMARY | 2021-07-08 15:33 | EXTERNAL MEDICAL SUMMARY RPT | Continuity of Care Document ---
:1990 Author Organization [facility] Address [address] [place] [address] Phone Allergies No information. Encounters No information. Medications No information. Problems date description facility [id number] Nausea with vomiting, unspecified [facility] [employer] [employer] Results No information.
--- NOTE | 2021-07-08 15:45 | ED Physician Documentation ---
PD HPI HEENT - Stated complaint Stated Complaint: EYE IRRITATION - Chief complaint Chief Complaint: Heent - History obtained from History obtained from: Patient - Additional information Additional information: The patient comes to the emergency department chief complaint of left eye irritation and burning since yesterday. Patient states that she has been rubbing her eyes for some time, because they do get itchy, but that yesterday, she started to feel as though her eye was irritated admits that she had a pressure sensation throughout the globe. She denies any visual changes. She felt specifically a discomfort at the medial canthus and noticed some scleral injection medially. Patient denies any discharge. No excessive tearing. She did not at any time feel that she got a foreign body in her eye. The patient wears corrective lenses in the form of glasses but not contacts. She denies any other complaints at this time. No history of glaucoma. Review of Systems Ten Systems: 10 systems reviewed and negative Constitutional: reports: Reviewed and negative Eyes: reports: Irritation Ears: reports: Reviewed and negative Nose: reports: Reviewed and negative Throat: reports: Reviewed and negative Cardiac: reports: Reviewed and negative Respiratory: reports: Reviewed and negative GI: reports: Reviewed and negative : reports: Reviewed and negative Skin: reports: Reviewed and negative Musculoskeletal: reports: Reviewed and negative Neurologic: reports: Reviewed and negative Psychiatric: reports: Reviewed and negative Endocrine: reports: Reviewed and negative Immunocompromised: reports: Reviewed and negative PD PAST MEDICAL HISTORY - Past Medical History Cardiovascular: None Respiratory: None Neuro: Headaches, Migraines Endocrine/Autoimmune: HyPOthyroidism GI: None 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 : None HEENT: None Psych: Depression, Anxiety, Bipolar disorder, Panic attacks, ADD/ADHD Musculoskeletal: None Derm: None - Past Surgical History Past Surgical History: Yes Ortho: Other - Present Medications Home Medications: Ambulatory Orders Medication Instructions Recorded Confirmed Dextroamphetamine/Amphetamine 15 mg PO DAILY 06/26/20 04/01/21 [Adderall 15 mg Tablet] Gabapentin [Neurontin] 2,100 mg PO DAILY 06/26/20 04/01/21 Levothyroxine Sodium 25 mcg PO DAILY 06/26/20 04/01/21 [Levothyroxine] Trazodone HCl 150 mg PO DAILY 06/26/20 04/01/21 Gentamicin 0.3% Ophth Drops 1 drops OPTH BID #5 ml 06/01/22 [Garamycin] - Allergies Allergies/Adverse Reactions: Allergies Allergy/AdvReac Type Severity Reaction Status Date / Time No Known Drug Allergies Allergy Verified 07/08/21 15:06 - Social History Does the pt smoke?: No Smoking Status: Never smoker Does the pt drink ETOH?: Yes Does the pt have substance abuse?: No - Immunizations Immunizations are current?: Yes - POLST Patient has POLST: No PD ED PE NORMAL - Vitals Vital signs reviewed: Yes - General General: Alert and oriented X 3, No acute distress, Well developed/nourished - HEENT HEENT: Atraumatic, PERRL, EOMI, Moist mucous membranes, Other (Moderate conjunctival injection the medial most aspect of the patient's eye on the left. No chemosis. No lid swelling. No drainage. Fluorescein exam shows some mild abrasion diffusely over the area. 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 She has a mild diffuse corneal abrasion over the medial aspect of her left eye. I will start the patient on gentamicin ophthalmic drops. We have discussed home management and symptoms and the usual indications for return. Departure - Departure Disposition: 01 Home, Self Care Clinical Impression: Conjunctivitis Qualifiers: Conjunctivitis type: acute Acute conjunctivitis type: unspecified Laterality: left Qualified Code(s): H10.32 - Unspecified acute conjunctivitis, left eye Condition: Stable Instructions: ED Conjunctivitis Nonspecific Prescriptions: Gentamicin 0.3% Ophth Drops [Garamycin] 1 drops OPTH BID #5 ml Comments: The irritation in your left eye could be due to infection or allergies. It could also be due to superficial trauma from rubbing your eyes. A prescription for medicated eyedrops has been sent to the would be community pharmacy and you may pick it up after this. If you are not better in the next week, please follow-up with your computer network specialist.
== END 2021-07-08 16:23 | disposition home or self-care (01) ==
LOC: ED 14:47
DX: H10.32 Unspecified acute conjunctivitis, left eye (principal)
CPT/HCPCS: 99282

== ENCOUNTER 2021-08-16 02:57 | Emergency (ER) | payer OTHER ==
[2021-08-16] MEDS ORDERED: KETOROLAC 60 MG/2 ML VIAL IM STA (04:50)
[2021-08-16 05:24] LABS: RAPID STREP SCREEN Negative (Negative)
--- NOTE | 2021-08-16 05:53 | ED Physician Documentation ---
PD HPI URI - Stated complaint Stated Complaint: sore throat - Chief complaint Chief Complaint: Heent - History obtained from History obtained from: Patient - Additional information Additional information: Patient is a 30-year-old female with no significant past medical history presenting for evaluation of a sore throat for 2 days along with dry cough and nasal congestion. She reports a sore throat is making it difficult for her to talk Due to the irritation. He has been able to swallow and has been using a hot apple cider with mild spices which has been helping. She has not taken a home COVID test. She denies fever, chest pain, difficulty breathing, abdominal pain or vomiting.She did have nausea vomiting and diarrhea approximately 1 week ago that has resolved. Pt had several days of vomitting and diarrhea onset approx 1 week ago, she reports that cleared up but now she has a sore throat that is making it difficult to speak. Review of Systems Constitutional: denies: Fever Nose: reports: Congestion. 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 : None HEENT: None Psych: Depression, Anxiety, Bipolar disorder, Panic attacks, ADD/ADHD Musculoskeletal: None Derm: None - Past Surgical History Past Surgical History: Yes Ortho: Other - Present Medications Home Medications: Ambulatory Orders Medication Instructions Recorded Confirmed Dextroamphetamine/Amphetamine 15 mg PO DAILY 06/26/20 08/16/21 [Adderall 15 mg Tablet] Gabapentin [Neurontin] 2,100 mg PO DAILY 06/26/20 08/16/21 Levothyroxine Sodium 25 mcg PO DAILY 06/26/20 08/16/21 [Levothyroxine] Trazodone HCl 150 mg PO DAILY 06/26/20 08/16/21 Ketotifen Fumarate [Alaway] 1 drops OP BID #10 ml 07/18/21 08/16/21 - Allergies Allergies/Adverse Reactions: Allergies Allergy/AdvReac Type Severity Reaction Status Date / Time No Known Drug Allergies Allergy Verified 08/16/21 03:18 - Social History Does the pt smoke?: No Smoking Status: Never smoker Does the pt drink ETOH?: Yes Does the pt have substance abuse?: No - Immunizations Immunizations are current?: Yes - POLST Patient has POLST: No PD ED PE NORMAL - General General: Alert and oriented X 3, No acute distress, Well developed/nourished - HEENT HEENT: Atraumatic, Moist mucous membranes, Pharynx benign (No oral swelling or Abscess, no trismus,) - Neck Neck: Supple, no meningeal sign - Cardiac Cardiac: RRR, No murmur, Strong equal pulses - Respiratory Respiratory: No respiratory distress, Clear bilaterally - Abdomen Abdomen: Normal bowel sounds, Soft, Non tender, Non distended - Derm Derm: Warm and dry - Extremities Extremities: No edema Results - Vitals Vitals: Vital Signs - 24 hr 08/16/21 08/16/21 03:21 06:01 Temperature 36.7 C 36.7 C Heart Rate 78 74 Respiratory 16 16 Rate Blood Pressure 120/73 131/74 H O2 Saturation 100 99 Oxygen O2 Source Room air - Labs Labs: Laboratory Tests 08/16/21 08/16/21 04:57 04:57 Nasal Adenovirus (PCR) NOT DETECTED Nasal B. parapertussis DNA (PCR) NOT DETECTED Nasal Coronavir 229E PCR NOT DETECTED Nasal Coronavir HKU1 PCR NOT DETECTED Nasal Coronavir NL63 PCR NOT DETECTED Nasal Coronavir OC43 PCR NOT DETECTED Nasal Enterovir/Rhinovir PCR NOT DETECTED Nasal Influenza B PCR NOT DETECTED Nasal Influenza A PCR NOT DETECTED Nasal Parainfluen 1 PCR NOT DETECTED Nasal Parainfluen 2 PCR NOT DETECTED Nasal Parainfluen 3 PCR NOT DETECTED Nasal Parainfluen 4 PCR NOT DETECTED Nasal RSV (PCR) NOT DETECTED Nasal B.pertussis DNA PCR NOT DETECTED Nasal C.pneumoniae (PCR) NOT DETECTED Wayne Human Metapneumo PCR NOT DETECTED Nasal M.pneumoniae (PCR) NOT DETECTED Nasal SARS-CoV-2 (PCR) NOT DETECTED Group A Strep Rapid Negative PD MEDICAL DECISION MAKING - ED course Complexity details: reviewed results, re-evaluated patient ED course: Patient is a 30-year-old female presenting for evaluation of a sore throat. She is overall well-appearing, nontoxic. No signs of oral abscess or deep space infection suggesting airway compromise. Strep test is negative. Respiratory panel is pending. Patient reports feeling better after receiving ibuprofen. Discussed continuing with supportive measures. She is aware of return precautions. Departure - Departure Disposition: 01 Home, Self Care Clinical Impression: Pharyngitis Qualifiers: Pharyngitis/tonsillitis etiology: unspecified etiology Qualified Code(s): J02.9 - Acute pharyngitis, unspecified Condition: Stable Instructions: ED Pharyngitis Viral Comments: You were evaluated for sore throat, cough and congestion. Your strep test is negative. Your symptoms could be related to a viral illness and a swab was done to check for COVID, influenza as well as a number of other common cold bugs. Please continue to use ibuprofen 600 mg every 6 hours as needed for pain or fever. Please make sure you stay hydrated And get plenty of rest.Return to the ER if you have any worsening in your symptoms such as trouble breathing or swallowing. You have a Covid test pending. You need to self quarantine until the result is done and negative. Do not leave your house. Do not get near anybody. The results should be done in 48 to 72 hours. We will call with a positive result, the fastest way to get a negative result for confirmation though is to go to the hospital website at [email or web address], click on the my [facility] tab and sign up for the patient portal. If any friends or family get sick and would like to have a Covid test done, but do not have signs or symptoms that would necessitate being hospitalized, there are multiple local options for Covid testing. [facility] keeps an updated list of testing and vaccination options at: [email or web address]. Discharge Date/Time: 08/16/21 06:01
[2021-08-16 06:02] VITALS: BP 131/74
[2021-08-16 06:04] LABS: B. PARAPERTUSSIS- RESP PCR PAN NOT DETECTED; B. PERTUSSIS- RESP PCR PANEL NOT DETECTED; C. PNEUMONIAE- RESP PCR PANEL NOT DETECTED; CORONAVIRUS 229E-RESP PCR NOT DETECTED; CORONAVIRUS HKU1-RESP PCR NOT DETECTED; CORONAVIRUS NL63-RESP PCR NOT DETECTED; CORONAVIRUS OC43-RESP PCR NOT DETECTED; HUMAN METAPNEUMOVIRUS NOT DETECTED; INFLUENZA A- RESP PCR PANEL NOT DETECTED; INFLUENZA B - RESP PCR PANEL NOT DETECTED; M. PNEUMONIAE- RESP PCR PANEL NOT DETECTED; PARAINFLUENZA VIRUS 1 NOT DETECTED; PARAINFLUENZA VIRUS 2 NOT DETECTED; PARAINFLUENZA VIRUS 3 NOT DETECTED; PARAINFLUENZA VIRUS 4 NOT DETECTED; RHINOVIRUS/ENTEROVIRUS NOT DETECTED; RSV- RESP PCR PANEL NOT DETECTED; SARS-CoV-2 -RESP PCR PANEL NOT DETECTED
--- NOTE | 2021-08-17 15:04 | ED Physician Documentation ---
ED Addendum - Addendum Addendum: 08/17/21 15:03 Strep culture ultimately positive first group F. Patient was started on penicillin twice additionally prescription electronically sent to the [facility] in [place]. Patient notified via phone by nursing staff.
== END 2021-08-16 06:01 | disposition home or self-care (01) ==
LOC: ED 02:57
DX: J02.0 Streptococcal pharyngitis (principal); B95.4 Other streptococcus as the cause of diseases classified elsewhere; Z20.822 Contact with and (suspected) exposure to COVID-19
CPT/HCPCS: 87070; 87430; 87633; 96372; 99282; 99283

== ENCOUNTER 2021-12-24 13:03 | Outpatient (CLI) | payer OTHER ==
--- NOTE | 2021-12-25 09:54 | Ultrasound Report ---
LIMITED ULTRASOUND OF RIGHT BREAST: 12/24/2021 CLINICAL: Palpable right breast lumps by physician. No prior exams were available for comparison. Real-time ultrasound of the right breast 6-9 o'clock region was performed. Rooney scale images of the real-time examination were reviewed. No significant abnormalities were seen sonographically in the right breast. Targeted imaging acquired at the patient directed areas of palpable concern, localizing to the 7 o'clock and 8 o'clock regions . The breast was imaged from 6 o'clock axis to the 9 o'clock axis. IMPRESSION: NEGATIVE There is no sonographic evidence of malignancy. There are no abnormalities seen in the right breast to correspond with the areas of clinical concern and palpable nodularities at 7 and 8 o'clock, however, recommend clinical follow up for persistent or worsening symptoms, or development of any clinically suspicious findings. Findings and recommendations were conveyed to the patient during today's evaluation. This exam was interpreted at Station ID: [id number]. Electronically Signed By: Chun Kirby M.D. aty/:12/24/2021 14:07:15 Ultrasound BI-RADS: 1 Negative BI-RADS CATEGORY: (1) - 1 Unspecified - other recall n/a LATERALITY: (B)
== END 2021-12-24 13:04 | disposition home or self-care (01) ==
LOC: DI 13:03
PROVIDERS: ATTEND Family Medicine
DX: N63.13 Unspecified lump in the right breast, lower outer quadrant (principal)

== ENCOUNTER 2022-01-16 21:15 | Emergency (ER) | payer OTHER ==
[2022-01-16 22:03] LABS: BILIRUBIN,URINE NEGATIVE (NEGATIVE); GLUCOSE, URINE (UA) NEGATIVE (NEGATIVE); KETONES,URINE (UA) NEGATIVE (NEGATIVE); LEUKOCYTE ESTERASE, URINE NEGATIVE (NEGATIVE); NITRITE,URINE NEGATIVE (NEGATIVE); OCCULT BLOOD,URINE NEGATIVE (NEGATIVE); PROTEIN,URINE NEGATIVE (NEGATIVE); UROBILINOGEN,URINE 0.2 (NORMAL) E.U./dL (NORMAL)
[2022-01-16 22:06] LABS: CLARITY,URINE CLEAR (CLEAR); HCG UR QUAL NEGATIVE
--- NOTE | 2022-01-16 22:35 | ED Physician Documentation ---
PD HPI FEMALE - Stated complaint Stated Complaint: FEMALE - Chief complaint Chief Complaint: Abd Pain - History obtained from History obtained from: Patient - History of Present Illness Timing - onset: How many days ago (2) Timing - duration: Days (2) Timing - details: Gradual onset, Still present Associated symptoms: Vaginal discharge (with some itching but has burning feeling and notes green/white thinner discharge.). No: Fever Contributing factors: Sexually active. No: Exposed to STD Similar symptoms before: Diagnosis (has had vaginitis yeast and BV in the past.) Recently seen: Not recently seen Review of Systems Constitutional: denies: Fever, Chills Nose: denies: Rhinorrhea / runny nose, Congestion Throat: denies: Sore throat Respiratory: denies: Cough : reports: Discharge. denies: Dysuria, Frequency, Vaginal bleeding Skin: denies: Rash, Lesions PD PAST MEDICAL HISTORY - Past Medical History Cardiovascular: None Respiratory: None Neuro: Headaches, Migraines Endocrine/Autoimmune: HyPOthyroidism GI: None SAMPLE SAWYER: None : None HEENT: None Psych: Depression, Anxiety, Bipolar disorder, Panic attacks, ADD/ADHD Musculoskeletal: None Derm: None - Past Surgical History Past Surgical History: Yes Ortho: Other - Present Medications Home Medications: Ambulatory Orders Medication Instructions Recorded Confirmed Dextroamphetamine/Amphetamine 15 mg PO DAILY 06/26/20 08/16/21 [Adderall 15 mg Tablet] Gabapentin [Neurontin] 2,100 mg PO DAILY 06/26/20 08/16/21 Levothyroxine Sodium 25 mcg PO DAILY 06/26/20 08/16/21 [Levothyroxine] Trazodone HCl 150 mg PO DAILY 06/26/20 08/16/21 Ketotifen Fumarate [Alaway] 1 drops OP BID #10 ml 07/18/21 08/16/21 Penicillin Vk 500 mg PO BID 10 Days #40 tablet 08/17/21 Fluconazole [Diflucan] 150 mg PO Q3D 6 Days #2 tablet 01/16/22 metroNIDAZOLE [Flagyl] 500 mg PO BID 10 Days #20 tablet 01/16/22 - Allergies Allergies/Adverse Reactions: Allergies Allergy/AdvReac Type Severity Reaction Status Date / Time No Known Drug Allergies Allergy Verified 01/16/22 21:19 - Social History Does the pt smoke?: No Smoking Status: Never smoker Does the pt drink ETOH?: Yes Does the pt have substance abuse?: No - Immunizations Immunizations are current?: Yes - POLST Patient has POLST: No PD ED PE NORMAL - Vitals Vital signs reviewed: Yes - General General: Alert and oriented X 3, No acute distress, Well developed/nourished - Abdomen Abdomen: Soft, Non tender - Female Female : Deferred (will have her self-obtain samples. ) - Rectal Rectal: Deferred - Back Back: No CVA TTP - Derm Derm: Normal color, No rash Results - Vitals Vitals: Vital Signs - 24 hr 01/16/22 01/16/22 21:20 23:51 Temperature 36.5 C Heart Rate 85 82 Respiratory 16 18 Rate Blood Pressure 130/63 132/64 H O2 Saturation 98 100 Oxygen O2 Source Room air - Labs Labs: Laboratory Tests 01/16/22 01/16/22 01/16/22 21:33 23:16 23:16 Urine Color YELLOW Urine Clarity CLEAR Urine pH 7.0 Ur Specific [place] 1.020 Urine Protein NEGATIVE Urine Glucose (UA) NEGATIVE Urine Ketones NEGATIVE Urine Occult Blood NEGATIVE Urine Nitrite NEGATIVE Urine Bilirubin NEGATIVE Urine Urobilinogen 0.2 (NORMAL) Ur Leukocyte Esterase NEGATIVE Ur Microscopic Review NOT INDICATED Urine Culture Comments NOT INDICATED Urine HCG, Qual NEGATIVE C. glabrata (PCR) NEGATIVE C. krusei (PCR) NEGATIVE Patricia species DNA POSITIVE A Chlam trachomat DNA PCR NEGATIVE N.gonorrhoeae DNA (PCR) NEGATIVE T. vaginalis (PCR) NEGATIVE TNP Bact Vaginosis (PCR) NEGATIVE PD MEDICAL DECISION MAKING - ED course Complexity details: reviewed results (pending the PCR tests at time of discharge. Symptoms seem likely BV and possible yeast too. Can call her if need to change Rx. ), considered differential, d/w patient ED course: PCR results show patricia without BV and no STDs. Her symptoms seem likely BV thugh. So can just have her take Rx course. Departure - Departure Disposition: 01 Home, Self Care Clinical Impression: Vaginal discharge Vaginitis Qualifiers: Chronicity: acute Qualified Code(s): N76.0 - Acute vaginitis Condition: Stable Record reviewed to determine appropriate education?: Yes Follow-Up: [facility] [Provider Group] Prescriptions: Fluconazole [Diflucan] 150 mg PO Q3D 6 Days #2 tablet metroNIDAZOLE [Flagyl] 500 mg PO BID 10 Days #20 tablet Comments: Your vaginal PCR test looking for back to your vaginitis/yeast vaginitis/STDs w ill result overnight or in the morning. We will call you in the morning if we need to change antibiotic choice based on that. Meanwhile we will presume a bacterial vaginitis with possible yeast as well and treat with metronidazole twice daily for 10 days and Diflucan antifungal every third day for 2 more doses. [facility] I also printed a copy for you if that ends up being an easy your mechanism for getting the prescription. Tylenol ibuprofen if needed for pains. Recheck if not improving well over the next several days to week. Discharge Date/Time: 01/16/22 23:51
[2022-01-16] MEDS ORDERED: FLUCONAZOLE 100 MG TABLET PO STA (22:50)
[2022-01-16] MEDS ORDERED: metroNIDAZOLE 250 MG TABLET PO STA (22:50)
[2022-01-16 23:51] VITALS: BP 132/64
[2022-01-17 03:02] LABS: BACTERIAL VAGINOSIS DNA NEGATIVE (NEGATIVE); CANDIDA GLABRATA DNA NEGATIVE (NEGATIVE); CANDIDA GROUP DNA POSITIVE (NEGATIVE); CANDIDA KRUSEI DNA NEGATIVE (NEGATIVE); TRICHOMONAS VAGINALIS DNA NEGATIVE (NEGATIVE)
[2022-01-17 03:57] LABS: CHLAMYDIA TRACHOMATIS DNA NEGATIVE (NEGATIVE); NEISSERIA GONORRHOEAE DNA NEGATIVE (NEGATIVE)
== END 2022-01-16 23:51 | disposition home or self-care (01) ==
LOC: ED 21:15
DX: N76.0 Acute vaginitis (principal)
CPT/HCPCS: 81003; 81025; 81514; 87491; 87591; 99282; 99283; A9270; 81001; 87086; 87661

== ENCOUNTER 2022-08-09 15:00 | Outpatient (CLI) | payer OTHER ==
[2022-08-09 20:48] LABS: BACTERIAL VAGINOSIS DNA NEGATIVE (NEGATIVE); CANDIDA GLABRATA DNA NEGATIVE (NEGATIVE); CANDIDA GROUP DNA POSITIVE (NEGATIVE); CANDIDA KRUSEI DNA NEGATIVE (NEGATIVE); TRICHOMONAS VAGINALIS DNA NEGATIVE (NEGATIVE)
[2022-08-09 22:02] LABS: CHLAMYDIA TRACHOMATIS DNA NEGATIVE (NEGATIVE); NEISSERIA GONORRHOEAE DNA NEGATIVE (NEGATIVE); TRICHOMONAS VAGINALIS DNA NEGATIVE (NEGATIVE)
[2022-08-11 15:09] LABS: HCV AB Non Reactive (Non Reactive); HIV SCREEN 4TH GENERATION Non Reactive (Non Reactive)
[2022-08-12 05:12] LABS: RPR Non Reactive (Non Reactive)
== END 2022-08-09 15:15 | disposition home or self-care (01) ==
LOC: LAB.N 15:00
PROVIDERS: ATTEND Physician Assistant Medical
DX: R30.0 Dysuria (principal)
CPT/HCPCS: 36415; 81514; 86592; 86803; 87086; 87389; 87491; 87591; 87661